=== PATIENT | female | born 1960 | race Caucasian/White ===

== ENCOUNTER 2018-09-03 16:17 | Emergency (ER) | payer BC ==
[2018-09-03 16:41] VITALS: BP 131/96
--- NOTE | 2018-09-03 17:07 | UC ---
Throat Pain/Nasal [place] HPI - HPI Summary HPI Summary: 58-year-old female presents with 3 week history of nasal congestion, sinus congestion, sinus pressure, postnasal drip, and a dry nonproductive cough. Denies fever, chills, dizziness or vertigo, ear pain, sore throat, chest pain, palpitations, shortness of breath, abdominal pain, nausea, or vomiting. 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 cyst removed from finger. appy 2018 - Family History Known Family History: Positive: Non-Contributory - Social History Occupation: Employed Full-time Lives: Alone Alcohol Use: None Substance Use Type: None Smoking Status (MU): Never Smoked Tobacco Review of Systems All Other Systems Reviewed And Are Negative: Yes Constitutional: Negative: Fever, Chills Skin: Negative: Rash Eyes: Negative: Drainage, Eye Redness ENT: Positive: Nasal Discharge, Sinus Congestion, Sinus Pain/Tenderness. Negative: Sore Throat, Ear Ache Respiratory: Positive: Cough. Negative: Shortness Of Breath Cardiovascular: Negative: Palpitations, Chest Pain Gastrointestinal: Negative: Abdominal Pain, Vomiting, Diarrhea, Nausea Genitourinary: Positive: Negative Musculoskeletal: Positive: Negative Neurological: Positive: Negative Is Patient Immunocompromised?: No Physical Exam - Summary Physical Exam Summary: GENERAL APPEARANCE: Well developed, well nourished, alert and cooperative, and appears to be in no acute distress. EYES: Conjunctiva clear. No discharge. Vision is grossly intact. EARS: External auditory canals and tympanic membranes clear, hearing grossly intact. NOSE: Mild-moderate nasal congestion with mucosal erythema and edema. No nasal discharge. Tenderness to frontal, ethmoid, and maxillary sinuses with percussion. THROAT: Pharyngeal erythema with cobblestoning. Tonsils surgically absent. Oral cavity normal. Teeth and gingiva in good general condition. NECK: Neck supple, non-tender without lymphadenopathy. CARDIAC: Normal S1 and S2. No S3, S4 or murmurs. Rhythm is regular. There is no peripheral edema, cyanosis or pallor. Extremities are warm and well perfused. Capillary refill is less than 2 seconds. LUNGS: Clear to auscultation without rales, rhonchi, wheezing or diminished breath sounds. Dry non-productive cough. ABDOMEN: Positive bowel sounds. Soft, nondistended, nontender. No guarding or rebound. No masses or hepatosplenomegally. MUSKULOSKELETAL: ROM intact to all extremities. No joint erythema or tenderness. Normal muscular development. Normal gait. SKIN: Skin normal color, texture and turgor with no lesions or eruptions. Triage Information Reviewed: Yes Vital Signs: Initial Vital Signs Temp 97.1 F 09/03/18 16:35 Pulse 82 09/03/18 16:35 Resp 16 09/03/18 16:35 BP 131/96 09/03/18 16:35 Pulse Ox 98 09/03/18 16:35 Vital Signs Reviewed: Yes Throat Pain/Nasal Course/Dx - Course Course Of Treatment: 58-year-old female presents with 3 week history of nasal congestion, sinus congestion, sinus pressure, postnasal drip, and a dry nonproductive cough. Denies fever, chills, dizziness or vertigo, ear pain, sore throat, chest pain, palpitations, shortness of breath, abdominal pain, nausea, or vomiting. Afebrile. Vital signs stable. Exam revealed an adult female in no acute distress with mom about nasal congestion with mucosal erythema and edema, tenderness over the frontal ethmoid and maxillary sinuses with percussion, mild pharyngeal erythema with cobblestoning, clear bilateral breath sounds, and a dry nonproductive cough. Considering the duration of her symptoms will treat for an acute sinusitis with Augmentin 875 mg twice a day 10 days as well as recommending symptomatic treatment. After receiving discharge instructions patient accidentally tripped over the footstool for the exam table following to the floor onto her bilateral knees. I did reexamine the patient following the fall. She denied hitting her head or any loss of consciousness. She has ecchymosis over the right patella without tenderness and inferior left knee without tenderness. Full painless range of motion to bilateral knees. She was able to stand, bear weight, and ambulate immediately after the incident. She was also noted to have a small linear superficial abrasion to the right whelan. She denied any other injuries. Patient was given a dose of naproxen for pain management. Patient declined x-rays. Patient is to follow-up with her primary care provider if she has no improvement in symptoms. Anticipatory guidance and warning symptoms were reviewed with the patient. Verbalizes understanding and agrees with plan of care. - Differential Dx/Diagnosis Differential Diagnosis/HQI/PQRI: Otitis Media, Pharyngitis, Sinusitis, Tonsillitis, URI Provider Diagnosis: Acute pansinusitis, Contusion of knee, left, Contusion of right knee, Abrasion of right lower leg Discharge - Sign-Out/Discharge Documenting (check all that apply): Patient Departure All imaging exams completed and their final reports reviewed: No Studies - Discharge Plan Condition: Stable Disposition: HOME Prescriptions: Amoxicillin/Clavulanate TAB* [Augmentin TAB 875*] 875 mg PO BID #20 tab Benzonatate CAP* [Tessalon 100 MG CAP*] 100 mg PO TID PRN #30 cap PRN Reason: Cough Fluticasone NASAL SPRAY 50MCG* [Flonase NASAL SPRAY 50MCG*] 2 spray BOTH NARES DAILY #1 btl Patient Education Materials: Sinusitis (ED), Contusion in Adults (ED), Abrasion (ED) Referrals: Armond Valdes MD [Primary Care Provider] - 7 Days (If no improvement.) Additional Instructions: Your history and exam are consistent with a sinus infection. Considering the duration of your symptoms we will treat the infection with an antibiotic. Start Augmentin 1 tab twice a day for 10 days. Take with food to avoid upset stomach. Be sure to complete the entire course even if feeling better. Drink plenty of fluids to avoid dehydration especially if you are running any fever. Use a saline rinse kit such as Neti Pot or NeilMed at least twice a day to help thin secretions and promote drainage of the sinuses. Use fluticasone (Flonase) nasal spray 2 sprays each nostril once daily. May use Tessalon Perles 1 cap every 8 hours as needed for cough. You appear to have contusions (bruising) of both knees from your fall. You declined x-rays at this time. We did give you a dose of naproxen in the clinic for pain so do not take any ibuprofen (Advil, Motrin) or naproxen (Aleve) for at least 12 hours. You may take acetaminophen (Tylenol) if needed. Apply ice to the affected area(s) for 15-20 minutes 3-4 times a day to help with pain and swelling. Keep the abrasion to your right whelan clean with mild soap and water. Apply a small amount of antibiotic ointment and cover with a bandage to prevent infection. Take over the counter acetaminophen (Tylenol) or ibuprofen (Advil, Motrin) according to directions as needed for pain or fever. Follow up with your primary care provider in 7 days if symptoms persist. Seek immediate medical attention in the emergency room if you have fever greater than 100.5 F despite taking acetaminophen or ibuprofen, have chest pain , difficulty breathing, are unable to swallow, knee pain that is not managed with pain medication, you are unable to ambulate or bear weight, have redness that spreads from around the abrasion, increased swelling, pus draining from the wound, or have any worsening of symptoms. - Billing Disposition and Condition Condition: STABLE Disposition: Home
[2018-09-03] MEDS ORDERED: Naproxen TAB* 250 MG PO ONE (17:37)
== END 2018-09-03 17:55 | disposition home or self-care (01) ==
LOC: UCEAST 16:17
DX: J01.40 Acute pansinusitis, unspecified (principal); S80.02XA Contusion of left knee, initial encounter; S80.01XA Contusion of right knee, initial encounter; S80.811A Abrasion, right lower leg, initial encounter; W18.09XA Striking against other object with subsequent fall, initial encounter; Y92.532 Urgent care center as the place of occurrence of the external cause
CPT/HCPCS: 99202; A9270-GY; G0463